=== PATIENT | female | born 1960 | race Caucasian/White ===

== ENCOUNTER 2020-03-29 12:38 | Outpatient (CLI) | payer OTHER, SELFPAY ==
--- NOTE | ~2020-03-29 | XR_ITS ---
EXAMINATION: XR lg joint inject/asp w image DATE: 03/29/2020 13:39 INDICATION: Left hip pain. Left hip flexor tightness. TECHNIQUE: A time-out was performed to verify the patient's name, date of , and procedure to b e performed. The procedure including the risks, benefits, and alternatives was discussed with the pat ient. Risks discussed included bleeding and infection. The patient understood the risks and agreed to proceed. The skin overlying the left hip joint joint was prepped and draped in usual sterile fashio n. Anesthetic was administered with 1% lidocaine subcutaneously. A 22 G needle was advanced under f luoroscopic guidance into the joint. Injection of 1 mL of Omnipaque 240 confirmed intra-articular po sition of the needle. Subsequently, injectate consisting of 1.5 mL 1% lidocaine and 0.5 mL 80 mg/mL Depo-Medrol was instilled. The needle was withdrawn 5 mm to rest in the iliopsoas bursa. Injection of 1 mL of Omnipaque 240 confirmed intra-bursal position of the needle. Injectate consisting of 1.5 mL 1% lidocaine and 0.5 mL 80 mg/mL Depo-Medrol was instilled. The needle was removed and the entry sit e was cleaned and dressed. There were no immediate complications. Fluoroscopy exposure time was 0.1 minutes. The total number of images was 4. FINDINGS: Real-time fluoroscopy demonstrates the needle in the left hip joint. Real-time fluoroscopy demonstrates the needle in the left iliopsoas bursa. Patient's pain prior to procedure:4/10. Patient 's pain following the procedure: 0/10. IMPRESSION: 1. Left hip joint injection of local anesthetic and steroid. 2. Left iliopsoas bursa injection of local anesthetic and steroid. Reviewed, dictated and finalized at location A.
== END 2020-03-29 12:39 | disposition home or self-care (01) ==
LOC: ANHIMG 12:40
PROVIDERS: PCP Family Medicine; Visit Provider Internal Medicine
DX: M24.552 Contracture, left hip (principal); R10.32 Left lower quadrant pain; M25.859 Other specified joint disorders, unspecified hip; S76.012D Strain of muscle, fascia and tendon of left hip, subsequent encounter; X58.XXXD Exposure to other specified factors, subsequent encounter
CPT/HCPCS: 20610; 77002; J1040; Q9966

== ENCOUNTER → 2020-04-27 07:22 | Outpatient (CLI) | payer OTHER, SELFPAY ==
--- NOTE | ~2020-04-27 | MM_ITS ---
EXAMINATION: MM screening jolynn BI w owen HISTORY: Screening mammogram TECHNIQUE: Craniocaudal and mediolateral oblique 3-D tomosynthesis images were obtained and synthetic 2-D images were generated. CAD analysis was submitted and interpreted. COMPARISON: 01/27/2019 bilateral digital screening mammogram / diagnostic left digital mammogram and limited left breast ultrasound 11/11/2017, 09/17/2016 bilateral digital screening mammogram examinations BREAST PARENCHYMAL COMPOSITION: There are scattered areas of fibroglandular density... FINDINGS: There is mild asymmetry in the upper anterior left breast on MLO view. Diagnostic left mamm ogram is recommended, with ultrasound if required.. Otherwise there is no evidence of suspicious mass, calcification, or architectural distortion to sugg est malignancy in either breast. There has been no other suspicious interval change. IMPRESSION: 1. Asymmetry at upper anterior left breast on MLO screening view 2. Diagnostic left mammogram is recommended, with ultrasound if required BI-RADS Category 0: Incomplete: Needs additional imaging evaluation. Reviewed, dictated and finalized at location A.
== END ==
PROVIDERS: Visit Provider Nurse Practitioner Obstetrics & Gynecology
DX: Z12.31 Encounter for screening mammogram for malignant neoplasm of breast (principal); R92.8 Other abnormal and inconclusive findings on diagnostic imaging of breast
CPT/HCPCS: 77063; 77067

== ENCOUNTER → 2020-05-16 08:46 | Outpatient (CLI) | payer OTHER, SELFPAY ==
--- NOTE | ~2020-05-16 | MMUS_ITS ---
EXAMINATION: MM diagnostic mammo unilat LT, US breast LT limited HISTORY: Left breast asymmetries. TECHNIQUE: Additional 3-D tomosynthesis images of the left breast were performed and synthetic 2-D im ages were generated. CAD analysis was submitted and interpreted. High resolution limited left breast ultrasound was performed. COMPARISON: Comparison to multiple prior studies sequentially, with oldest reviewed study dated 02/28. BREAST PARENCHYMAL COMPOSITION: Breast composed of scattered areas of fibroglandular density. FINDINGS: MAMMOGRAPHIC FINDINGS: There are no suspicious masses, calcifications or architectural distortion to suggest malignancy. ULTRASOUND: Limited left breast ultrasound: Normal heterogeneous echotexture without focal solid or cystic mass. IMPRESSION: 1. No evidence for malignancy in the left breast. 2. Routine yearly screening mammogram and regular clinical breast examination are recommended. BI-RADS Category 1: Negative Reviewed, dictated and finalized at location A. IMPRESSION: 1. No evidence for malignancy in the left breast. 2. Routine yearly screening mammogram and regular clinical breast examination a re recommended. BI-RADS Category 1: Negative
== END ==
PROVIDERS: Visit Provider Nurse Practitioner Obstetrics & Gynecology
DX: R92.8 Other abnormal and inconclusive findings on diagnostic imaging of breast (principal)
CPT/HCPCS: 76642; 77065

== ENCOUNTER 2020-11-10 13:36 | Outpatient (CLI) | payer OTHER, SELFPAY ==
--- NOTE | ~2020-11-10 | XR_ITS ---
EXAMINATION: XR lg joint inject/asp w image EXAM DATE: 11/10/2020 14:34 INDICATION: Osteoarthritis of left hip, left hip flexor tightness. TECHNIQUE: A time-out was performed to verify the patient's name, date of , and procedure to b e performed. The procedure including the risks, benefits and alternatives were discussed with the pat ient. Risks discussed included bleeding and infection. The patient understood the risks and agreed to proceed. The skin overlying the left hip joint was prepped and draped in usual sterile fashion. Ane sthetic was administered with 2 milliliters 1% lidocaine subcutaneously. A 22 G needle was advanced under fluoroscopic guidance into the joint. Total of 2 mL of Omnipaque 240 confirmed intra-articula r position of the needle. Subsequently, injectate consisting of 80 mg Depo-Medrol, 3 cc of 2% lidoca ine was instilled. The needle was removed and the entry site was cleaned and dressed. There were n o immediate complications. The DAP for this procedure was 0.175 Gycm2. Pulsed dose reduction fluoro scopy was used with fluoroscopic time of 0.1 minutes. A total of 2 images obtained for the exam. The procedure was performed on 11/10/2020. FINDINGS: Real-time fluoroscopy demonstrates the needle and contrast in the left hip joint. Patient r eported preinjection pain level of 6/10 and post hip injection pain level of 0/10. IMPRESSION: Successful left hip joint injection consisting of steroid and lidocaine. Reviewed, dictated and finalized at location A. IMPRESSION: Successful left hip joint injection consisting of steroid and lidoc darryl.
== END 2020-11-10 13:37 | disposition home or self-care (01) ==
PROVIDERS: PCP Family Medicine; Visit Provider Internal Medicine
DX: M16.12 Unilateral primary osteoarthritis, left hip (principal); M24.552 Contracture, left hip; M70.72 Other bursitis of hip, left hip
CPT/HCPCS: 20610; 77002; J1040; Q9966

== ENCOUNTER 2021-04-30 09:46 | Outpatient (CLI) | payer OTHER, SELFPAY ==
--- NOTE | ~2021-04-30 | XR_ITS ---
EXAMINATION: XR lg joint inject/asp w image DATE: 04/30/2021 10:35 INDICATION: Primary osteoarthritis of left hip. TECHNIQUE: A time-out was performed to verify the patient's name, date of , and procedure to b e performed. The procedure including the risks, benefits, and alternatives was discussed with the pat ient. Risks discussed included bleeding and infection. The patient understood the risks and agreed to proceed. The skin overlying the left hip joint was prepped and draped in usual sterile fashion. An esthetic was administered with 1% lidocaine subcutaneously. A 22 G needle was advanced under fluoros copic guidance into the joint. Injection of 1 mL of Omnipaque 240 confirmed intra-articular position of the needle. Subsequently, injectate consisting of 4 mL 1% lidocaine and 1 mL 80 mg/mL Depo-Medro l was instilled. The needle was removed and the entry site was cleaned and dressed. There were no i mmediate complications. Fluoroscopy exposure time was 0.1 minutes. The total number of images was 3. FINDINGS: Real-time fluoroscopy demonstrates the needle in the left hip joint. Patient's pain prior t o procedure:5/10. Patient's pain following the procedure: 0/10. IMPRESSION: 1. Fluoroscopy guided left hip joint injection of local anesthetic and steroid with decrease in the p atient's presenting pain. Reviewed, dictated and finalized at location A. IMPRESSION: 1. Fluoroscopy guided left hip joint injection of local anesthetic and steroid with decrease in the patient's presenting pain.
== END 2021-04-30 09:47 | disposition home or self-care (01) ==
PROVIDERS: PCP Family Medicine; Visit Provider Physician Assistant
DX: M25.552 Pain in left hip (principal)
CPT/HCPCS: 20610; 77002; J1040; Q9966

== ENCOUNTER → 2021-07-17 15:10 | Outpatient (CLI) | payer OTHER, SELFPAY ==
--- NOTE | ~2021-07-17 | MM_ITS ---
EXAMINATION: MM screening jolynn BI w owen HISTORY: Screening TECHNIQUE: Craniocaudal and mediolateral oblique 3-D tomosynthesis images were obtained and synthetic 2-D images were generated. CAD analysis was submitted and interpreted. COMPARISON: Comparison to multiple prior studies sequentially, with oldest reviewed study dated 02/2017. BREAST PARENCHYMAL COMPOSITION: There are scattered areas of fibroglandular density. FINDINGS: There is no evidence of suspicious mass, calcification, or architectural distortion to sugg est malignancy in either breast. There has been no suspicious interval change. IMPRESSION: 1. No mammographic evidence of malignancy. 2. Recommend routine screening mammography in one year. BI-RADS Category 1: Negative Reviewed, dictated and finalized at location A. NESS PLANNER
== END ==
PROVIDERS: Visit Provider Nurse Practitioner Obstetrics & Gynecology
DX: Z12.31 Encounter for screening mammogram for malignant neoplasm of breast (principal)
CPT/HCPCS: 77063; 77067

== ENCOUNTER → 2021-08-15 01:58 | Outpatient (CLI) | payer OTHER, SELFPAY ==
[2021-08-15 20:49] LABS: SARS-CoV-2 RNA PCR Positive
== END ==
PROVIDERS: PCP Family Medicine; Visit Provider Family Medicine
DX: U07.1 COVID-19 (principal)
CPT/HCPCS: C9803; U0003; U0005

== ENCOUNTER → 2022-09-25 15:40 | Outpatient (CLI) | payer OTHER, SELFPAY ==
--- NOTE | ~2022-09-25 | MM_ITS ---
EXAMINATION: MM screening jolynn BI w owen HISTORY: Screening mammogram TECHNIQUE: Craniocaudal and mediolateral oblique 3-D tomosynthesis images were obtained and synthetic 2-D images were generated. CAD analysis was submitted and interpreted. COMPARISON: No prior mammogram is available for comparison at this institution. BREAST PARENCHYMAL COMPOSITION: There are scattered areas of fibroglandular density. FINDINGS: Left breast: There is an asymmetric approximately 3 mm opacity in the central left breast 5 cm deep to the nipple on craniocaudal view. Diagnostic left mammogram is recommended, with ultrasoun d if required. Right breast: There is no evidence of suspicious mass, calcification, or architectural distortion to suggest malignancy in either breast. IMPRESSION: 1. 3 mm asymmetric opacity in central left breast 5 cm deep to the nipple on CC view 2. Diagnostic left mammogram is recommended, with ultrasound if required BI-RADS Category 0: Incomplete: Needs additional imaging evaluation. Reviewed, dictated and finalized at location A. [employer]ER [employer]
== END ==
PROVIDERS: PCP Nurse Practitioner Obstetrics & Gynecology; Visit Provider Nurse Practitioner Obstetrics & Gynecology
DX: Z12.31 Encounter for screening mammogram for malignant neoplasm of breast (principal); N64.89 Other specified disorders of breast
CPT/HCPCS: 77063; 77067

== ENCOUNTER → 2022-10-18 08:45 | Outpatient (CLI) | payer OTHER, SELFPAY ==
--- NOTE | ~2022-10-18 | MM_ITS ---
EXAMINATION: MM diagnostic jolynn LT w owen HISTORY: Left breast asymmetry on screening mammogram TECHNIQUE: Additional 3-D tomosynthesis images of the left breast were performed and synthetic 2-D im ages were generated. CAD analysis was submitted and interpreted. COMPARISON: 09/23/2022, 07/17/2021, 05/16/2020, 04/27/2020 FINDINGS: There is a return to baseline fibroglandular appearance with spot compression of the left b reast in the area questioned on screening mammogram. IMPRESSION: 1. No mammographic evidence of malignancy. 2. Recommend routine screening mammography in one year. BI-RADS Category 1: Negative Reviewed, dictated and finalized at location A. OR DEVELOPER
== END ==
PROVIDERS: PCP Family Medicine; Visit Provider Nurse Practitioner Obstetrics & Gynecology
DX: R92.8 Other abnormal and inconclusive findings on diagnostic imaging of breast (principal)
CPT/HCPCS: 77061; 77065; G0279

== ENCOUNTER 2022-12-10 00:29 | Day surgery (SDC) | payer OTHER, SELFPAY ==
[2022-11-27 14:18] VITALS: BMI 30.1
[2022-12-10 07:24] VITALS: BP 175/81; PULSE 59; RESP 20; TEMP 36.2; O2SAT 99
[2022-12-10] MEDS: LACTATED RINGERS 1,000 ML 150 ML IV CONT (07:36)
--- NOTE | 2022-12-10 07:47 | P.HP_ITS ---
History of Present Illness History of Present Illness Consent: Risks, benefits, and alternatives have been discussed and questions answered. Patient agrees to proceed with procedure. Chief complaint: neoplasm screening Narrative: Keren Yan is a 62 year old female Presents for screening colonoscopy. Patient's current weight appetite and bowel movements are normal. Patient denies abdominal pain. She has had no bleeding. She denies abdominal pain. Family history noncontributory. Previous colonoscopy 10 years ago was unremarkable. Review of Systems Review of Systems: Review of systems noncontributory. [facility] Family History Family History (Reviewed 07/14/20 @ 15:14 by Matilda Oconnor, [facility]) Mother Hypertension Family history of elevated blood lipids Family history of cardiovascular disease Family history of heart disease in male family member before age 55 Other Family history of malignant neoplasm of breast Malignant neoplasm of prostate Social History Social History (Reviewed 07/14/20 @ 15:14 by Matilda Oconnor, [facility]) Smoking status: Never smoker Alcohol intake: current Drinks per week: 4 Living arrangements: with family Spiritual care concerns: No Meds Home Medications and Allergies Allergies Allergy/AdvReac Type Severity Reaction Status Date / Time codeine Allergy Unknown vomiting Verified 12/10/22 07:23 Vital Signs Vital Signs - 24 hr 12/10/22 07:24 Temperature 97.2 F L Pulse Rate 59 L Respiratory Rate 20 Blood Pressure 175/81 H Pulse Oximetry 99 Oxygen Delivery Room Air Exam Narrative: Physical exam reveals patient to be alert. Vital signs stable. HEENT exam is unremarkable. Patient is anicteric. Lungs are clear to auscultation and percussion. Heart is without murmur or extra sounds. Abdomen bowel sounds are present soft nontender with no organomegaly. Digital external rectal exam is normal. Assessment and Plan Assessment and plan (1) Colon cancer screening: Code(s): Z12.11 - Encounter for screening for malignant neoplasm of colon Status: Acute Assessment and Plan: Patient presents for screening colonoscopy. She appears to be at average risk for colon polyps. Further recommendations may be given after endoscopy.
--- NOTE | 2022-12-10 07:48 | P.PNAN_ITS ---
Anes - Initial Pre Proc Eval Procedure: Operation Date: 12/10/22 08:30 Proposed Procedures p Screening Colonoscopy - Hamilton Blackwell MD Date/Time: 12/10/22 07:48 Surgeon: Hamilton Blackwell MD Pre Op Diagnosis: neoplasm screening Patient Data Age: 62 Gender: F Height: 1.6 m Weight: 76.2 kg Last Vital Signs Temp 97.2 F L 12/10/22 07:24 Pulse 59 L 12/10/22 07:24 Resp 20 12/10/22 07:24 BP 175/81 H 12/10/22 07:24 Pulse Ox 99 12/10/22 07:24 O2 Del Method Room Air 12/10/22 07:24 Allergies Allergy/AdvReac Type Severity Reaction Status Date / Time codeine Allergy Unknown vomiting Verified 12/10/22 07:23 Patient hx anesthesia problems: none Family hx anesthesia problems: none Results Review: All pre-operative results and documents have been reviewed as part of the pre- operative evaluation. PMFSH Family History Family History (Reviewed 07/14/20 @ 15:14 by Matilda Oconnor [facility]) Mother Hypertension Family history of elevated blood lipids Family history of cardiovascular disease Family history of heart disease in male family member before age 55 Other Family history of malignant neoplasm of breast Malignant neoplasm of prostate Social History Social History (Reviewed 07/14/20 @ 15:14 by Matilda Oconnor [facility]) Smoking status: Never smoker Alcohol intake: current Drinks per week: 4 Living arrangements: with family Spiritual care concerns: No Anes - Eval Final PreProcedure Day of Procedure 12/10/22 07:48 Patient weight: overweight Heart: regular rate and rhythm Lungs: clear to auscultation Airway: Mallampati scale class II Neurological: alert and oriented Last oral intake: >/= 8 hours ASA classification: II Emergent: no Anesthetic plan: proceed Anesthesia type and monitoring: general GIVS and standard monitoring Results Review: All pre-operative results and documents have been reviewed as part of the pre- operative evaluation. Informed Consent: The patient's anesthetic plan and its attendant risks and benefits were discussed with the patient/family/POA. Questions were solicited and answers provided to the satisfaction of the patient/family/POA.
[2022-12-10 08:40] VITALS: BP 117/67; PULSE 71; RESP 24; O2SAT 99
[2022-12-10 08:50] VITALS: BP 136/100; PULSE 76; RESP 24; O2SAT 99
[2022-12-10 09:00] VITALS: BP 141/84; PULSE 68; RESP 18; O2SAT 99
== END 2022-12-10 09:14 | disposition home or self-care (01) ==
PROVIDERS: PCP Family Medicine; Visit Provider Internal Medicine Gastroenterology
PROC: 0DJD8ZZ Inspection of Lower Intestinal Tract, Via Natural or Artificial Opening Endoscopic (ICD-10-PCS; CPT 45378; principal; 2022-12-10 08:30)
DX: Z12.11 Encounter for screening for malignant neoplasm of colon (principal); D12.0 Benign neoplasm of cecum; D12.4 Benign neoplasm of descending colon; D12.5 Benign neoplasm of sigmoid colon; K64.8 Other hemorrhoids
CPT/HCPCS: 45385; 88305; J2704; J7120

== ENCOUNTER → 2023-06-26 16:14 | Outpatient (CLI) | payer OTHER, SELFPAY ==
--- NOTE | ~2023-06-26 | XR_ITS ---
EXAMINATION: XR hand BI arthritis min 3V DATE: 06/26/2023 16:23 INDICATION: Arthritis. Hand pain. TECHNIQUE: 4 views of right hand and 4 views of left hand on a total of 7 radiographs were obtained. COMPARISON: Left hand radiographs 11/09/2015 FINDINGS: RIGHT HAND: Bone alignment is normal. No fracture. There is mild osteoarthritis of second metacarpoph alangeal joint and second, third, and fifth distal interphalangeal joints. LEFT HAND: Bone alignment is normal. No acute fracture. There is plate and screw fixation of distal r adius. There is mild osteoarthritis of first metacarpophalangeal joint and second distal interphalang eal joint. IMPRESSION: 1. Mild polyarticular osteoarthritis. Reviewed, dictated and finalized at location A. ANALYST
== END ==
PROVIDERS: PCP Family Medicine; Visit Provider Family Medicine
DX: M19.042 Primary osteoarthritis, left hand (principal); M19.041 Primary osteoarthritis, right hand; M25.542 Pain in joints of left hand; M25.541 Pain in joints of right hand
CPT/HCPCS: 73130

== ENCOUNTER 2023-06-27 08:24 | Outpatient (CLI) | payer OTHER, SELFPAY ==
[2023-06-27 18:40] LABS: Basophils Absolute Auto 0.1 K/mm3 (0.0-0.1); Basophils Percent Auto 1.4 % (0.2-1.2); Eosinophils Absolute Auto 0.1 K/mm3 (0-0.3); Eosinophils Percent Auto 1.9 % (0-4.4); Hemoglobin 13.5 g/dL (12.0-15.0); Immature Granulocyte Absolute 0.01 K/mm3 (0.00-0.031); Immature Granulocyte Percent A 0.2 % (0-0.5); Lymphocytes Absolute Auto 1.78 K/mm3 (0.9-3.2); Lymphocytes Percent Auto 41.5 % (18.3-44.2); Mean Corpuscular HGB Conc 32.9 g/dl (32-36); Mean Corpuscular Hemoglobin 31.4 pg (26-34); Mean Corpuscular Volume 95.3 fl (80-100); Mean Platelet Volume 12.7 fl (7.4-10.4); Monocytes Absolute Auto 0.4 K/mm3 (0.1-0.6); Monocytes Percent Auto 9.3 % (2.6-8.5); Neutrophils Percent Auto 45.7 % (45.5-73.1); Platelet Count Result 182 k/mm3 (150-375); Red Cell Distribution Width 12.6 % (11.5-14.5); White Blood Count 4.3 K/mm3 (4.5-10.0)
[2023-06-27 18:52] LABS: Alanine Aminotransferase 26 U/L (6-35); Albumin Level 4.4 g/dL (3.5-5.1); Alkaline Phosphatase 66 U/L (38-126); Anion Gap 7 mmol/L (8-16); Aspartate Amino Transferase 39 U/L (14-36); Bilirubin,Total 0.6 mg/dL (0.2-1.3); Blood Urea Nitrogen 14 mg/dL (7-17); Calcium 9.5 mg/dL (8.4-10.2); Carbon Dioxide 31 mmol/L (22-30); Chloride 101 mmol/L (98-107); Cholesterol 234 mg/dL (0-200); Estimated Glomerular Filt Rate > 60; Glucose 87 mg/dL (65-110); HDL Direct 70 mg/dL; Potassium 3.9 mmol/L (3.4-5.0); Sodium 139 mmol/L (137-145); Triglycerides 104 mg/dL (<150); Uric Acid 3.9 mg/dL (2.5-7.5)
[2023-06-27 19:03] LABS: LDL Cholesterol Direct 112 mg/dL
[2023-06-27 19:07] LABS: Rheumatoid Factor < 12.0 IU/ML (<12)
[2023-06-27 19:20] LABS: Erythrocyte Sedimentation Rate 15 mm/hr (0-20)
[2023-06-27 19:29] LABS: Hemoglobin A1C 5.5 % (<5.7)
== END 2023-06-27 08:25 | disposition home or self-care (01) ==
PROVIDERS: PCP Family Medicine; Visit Provider Family Medicine
DX: M12.9 Arthropathy, unspecified (principal); E03.8 Other specified hypothyroidism; R73.03 Prediabetes; E78.5 Hyperlipidemia, unspecified; Z83.49 Family history of other endocrine, nutritional and metabolic diseases
CPT/HCPCS: 36415; 80053; 80061; 81256; 82728; 83036; 84443; 84550; 85025; 85652; 86038; 86430

== ENCOUNTER 2023-12-12 13:45 | Outpatient (CLI) | payer OTHER, SELFPAY ==
--- NOTE | ~2023-12-12 | MM_ITS ---
EXAMINATION: MM screening jolynn BI w owen HISTORY: Screening mammogram TECHNIQUE: Craniocaudal and mediolateral oblique 3-D tomosynthesis images were obtained and synthetic 2-D images were generated. CAD analysis was submitted and interpreted. COMPARISON: 3 size and size 2022 diagnostic left mammogram 09/25/2022, 07/17/2021 bilateral screening mammogram examinations BREAST PARENCHYMAL COMPOSITION: There are scattered areas of fibroglandular density. FINDINGS: There is no evidence of suspicious mass, calcification, or architectural distortion to sugg est malignancy in either breast. There has been no suspicious interval change. IMPRESSION: 1. No mammographic evidence of malignancy. 2. Recommend routine screening mammography in one year. BI-RADS Category 1: Negative Reviewed, dictated and finalized at location A.
== END 2023-12-12 13:46 ==
LOC: MICIMG 13:46
PROVIDERS: PCP Nurse Practitioner Obstetrics & Gynecology; Visit Provider Nurse Practitioner Obstetrics & Gynecology
DX: Z12.31 Encounter for screening mammogram for malignant neoplasm of breast (principal)
CPT/HCPCS: 77063; 77067

== ENCOUNTER 2024-12-13 13:29 | Outpatient (CLI) | payer OTHER, SELFPAY ==
--- NOTE | ~2024-12-13 | MM_ITS ---
EXAMINATION: MM screening jolynn BI w owen HISTORY: Screening TECHNIQUE: Craniocaudal and mediolateral oblique 3-D tomosynthesis images were obtained and synthetic 2-D images were generated. CAD analysis was submitted and interpreted. COMPARISON: Comparison to multiple prior studies sequentially, with oldest reviewed study dated 04/27. BREAST PARENCHYMAL COMPOSITION: Not dense: There are scattered areas of fibroglandular density. FINDINGS: There is no evidence of suspicious mass, calcification, or architectural distortion to sugg est malignancy in either breast. There has been no suspicious interval change. IMPRESSION: 1. No mammographic evidence of malignancy. 2. Recommend routine screening mammography in one year. BI-RADS Category 1: Negative Reviewed, dictated and finalized at location A.
== END 2024-12-13 13:30 | disposition home or self-care (01) ==
LOC: MICIMG 13:29
PROVIDERS: PCP Family Medicine; Visit Provider Family Medicine
DX: Z12.31 Encounter for screening mammogram for malignant neoplasm of breast (principal)
CPT/HCPCS: 77063; 77067

== ENCOUNTER 2025-01-07 07:57 | Outpatient (CLI) | payer OTHER, SELFPAY ==
--- OUTSIDE RECORDS SUMMARY | 2025-01-07 08:01 | XMS_ITS | Clinical Summary ---
Author Organization [facility] Address [address] [place] [address] Care Team Providers Care Faro Dealer Name Role Phone Sandy Iglesias MD Primary Care Provider + Allergies Active Allergy Reactions Criticality Noted Date Comments Codeine Vomiting Low 10/09/2018 Medications ibuprofen (ADVIL,MOTRIN) 200 mg tab/capIndicati ons:Pain Take 2 tablet/capsule (400 mg total) by mouth every 6 (six) hours as needed for pain Active omega 4-eoa-jut-fish oil 300-1,000 mg capsule Fish Oil 300 mg-1,000 mg capsule Active multivit with minerals/lutein (MULTIVITAMIN 50 PLUS ORAL) multivitamin Act tyrone losartan (COZAAR) 50 mg tablet Take 1 tablet (50 mg total) by mouth daily Active predniSONE (DELTASONE) 10 mg tabletIndicatio ns:Myalgia,Poly arthralgia 6 tabs on days 1-2, 5 tabs days 3-4, 4 tabs days 5-6, 3 tabs days 7-8, 2 tabs days 9-10, 1 tab days 11-12 42 tablet 4 Active celecoxib (CeleBREX) 200 mg capsuleIndicati ons:Strain of right hip adductor muscle, initial encounter TAKE 1 CAPSULE (200 MG TOTAL) BY MOUTH DAILY FOR 21 DAYS 21 capsule 5 Active Active Problems Problem Noted Date Diagnosed Date Impingement syndrome of left shoulder 12/30/2024 Nontraumatic complete tear of rotator cuff, left 12/30/2024 Superior glenoid labrum lesion of left shoulder 10/22/2024 Rotator cuff impingement syndrome, left 10/23/19 Arthritis of left acromioclavicular joint 2024 Nontraumatic incomplete tear of left rotator cuf f 10/22/2024 Abdominal pain, chronic, left lower quadrant Overview (11/25/2018): Added automatically from request for surgery [id number] Abnormal CT of the abdomen 11/26/2017 Abnormal clinical finding 06/17/2017 Pelvic and perineal pain 05/20/2017 Cervical high risk HPV (human papillomavirus) te st positive 05/06/2017 Urinary tract infectious disease 10/03/2016 Well adult health check 01/13/2015 Encounter for specialized medical examination Proteinuria 10/25/2013 Menopausal symptom 12/20/2011 Screening for malignant neoplasm of cervix 09/27 Encounters Date Type Department Care Team Description 12/30/[address] [facility] Orthopedics and Sports Medicine [address] [place] [phone] Dilshad Flores MD Superior glenoid labrum lesion of left shoulder, initial encounter (Primary Dx); Rotator cuff impingement syndrome, left; Arthritis of left acromioclavicular joint; Nontraumatic incomplete tear of left rotator cuff 10/22/2024 10:15 AM CDT Office Visit [facility] Orthopedic and Sports Medicine [address] [place] [phone] Dilshad Flores MD Superior glenoid labrum lesion of left shoulder, initial encounter (Primary Dx); Rotator cuff impingement syndrome, left; Arthritis of left acromioclavicular joint; Nontraumatic incomplete tear of left rotator cuff 10/22/2024 Orders Only [facility] Orthopedic and Sports Medicine [address] [place] [phone] Dilshad Flores MD S/P arthroscopy of left shoulder (Primary Dx) 10/22/2024 Telephone [facility] Orthopedic and Sports Medicine [address] [place] [phone] Dilshad Flores MD Surgical Clearance from Last 3 Months Surgical History Surgery Date Site/Laterality Comments EMBOLIZATION 06/11/2017 - 07/10/2017 Left Ovarian Venography/Embolization FRACTURE SURGERY 11/09/2013 - 12/08/2013 Left Left radius fx - w/ plate WISDOM TOOTH EXTRACTION VAGINAL DELIVERY x 2 FL FLUORO GUIDED INJECTION HIP LEFT 06/11/2022 Left FL FLUORO GUIDED INJECTION HIP LEFT 05/12/2023 Left FL FLUORO GUIDED INJECTION HIP LEFT 06/04/2024 Left Medical History Medical History Date Comments Abdominal pain LLQ PONV (postoperative nausea and vomiting) Motion sickness Migraines Family History Medical History Relation Name Comments Heart attack Mother Hypertension Mother PONV Mother Cancer Other Heart disease Other Hypertension Other Mental illness Other Relation Name Status Comments Mother (Age 77 ) [place] late 5 0's s/p CABG Other Social History Tobacco Use Types Packs/Day Years Used Date Smoking Tobacco: Never Smokeless Tobacco: Never Tobacco Cessation:Counseling Given: Not Answered Alcohol Use Standard Drinks/Week Comments Yes 7 (1 standard drink = 0.6 oz pur e alcohol) 1 glass of wine w/ dinner AUDIT-C Answer Date Recorded Q1: How often do you have a drink containing alc ohol? Monthly or less 07/15/2024 Q2: How many drinks containi ng alcohol do you have on a typical day when you are drinking? 1 or 2 07/15/2024 Q3: How often do you have si x or more drinks on one occasion? 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 Gender Identity Female 04/17/2021 10:51 AM CDT Sexual Orientation Straight 04/17/2021 10 :51 AM CDT Obstetrics History Last Filed Vital Signs Vital Sign Reading Time Taken Comments Blood Pressure 162/82 10/22/2024 11:06 AM CDT Pulse 84 10/22/2024 11:06 AM CDT Temperature 36.3 C (97.3 F) 11/06/2020 7:10 AM CDT Respiratory Rate 18 07/06/2024 2:16 PM WORKING FOREMAN Oxygen Saturation 97% 04/04/2020 10: 35 AM CDT Inhaled Oxygen Concentration - - Weight 79.8 kg (175 lb 14.8 oz) 025 12:25 PM CDT Height 157.5 cm (5' 2.01) 10/22/2024 1 2:25 PM CDT Body Mass Index 32.17 10/22/2024 12:25 PM CDT Plan of Treatment Upcoming Encounters Date Type Department Care Team (Latest Contact Info) Description 01/18/2025 11:05 AM CDT Hospital Encounter [facility] Operating Room [address] [place] [address] Dilshad Flores MD [address] [facility] [address] JAQUI Denton [facility] [address] [place] [address] 01/18/2025 11:05 AM CDT - 01/18/2025 1:15 PM CDT Surgery [facility] Operating Room [address] [place] [address] Dilshad Flores MD [address] [facility] [address] JAQUI Denton [facility] [address] [place] [address] Left shoulder arthroscopy, distal claviculectomy including distal articular surface, decompression of subacromial space with partial acromioplasty with coracoacromial release, rotator cuff repair and biceps tenodesis--arthroscopy equipment, beach chair, Arthrex ApolloRf vapor, biceps tenodesis set Arthrex, Breg Sling shot 2 sling with abduction pillow, NMES, Spider, Arthrex anchors, polar care and Arthroflex graft on hold Scheduled Procedures Name Priority Associated Diagnoses Date/Ti me ARTHROSCOPY SHOULDER Superior glenoid labrum lesion of left shoulder, initial encounter Impingement syndrome of left shoulder Arthritis of left acromioclavicular joint Nontraumatic complete tear of rotator cuff, left 01/18/2025 11:05 AM CDT Health Maintenance Due Date Last Done Comments Cervical Cancer Screening 1960 Colon Cancer Screening-Colonoscopy 1960 Depression Screening 1960 Hepatitis C Screening 1960 Hepatitis B Screening 1980 Regular Well Visit/Exam 18-64 1980 Zoster Vaccine (1 of 2) 2012 Breast Cancer Screening-Mammogram 12/11/2024 12/12/2023, 09/25/2022, 07/18/2021, Additional history exists Influenza Vaccine (Season Ended) 2025 07/16/2023, 06/25/2022, 06/26/2021, Additional history exists DTaP/Tdap/Td Vaccine (3 - Td or Tdap) 07/16/2029 07/16/2019, 06/14/2012 Pneumococcal vaccine <65 Aged Out No longer eligible based on patient's age to complete this topic Insurance [facility] Care Teams Faro Dealer Relationship Specialty Start Date End Date Sandy Iglesias MD PCP - General 06/30/17
--- OUTSIDE RECORDS SUMMARY | 2025-01-07 08:01 | XMS_ITS | Referral Summary ---
Author Organization [facility] Address [address] [place] [phone] Care Team Providers Care Retirement Plan Specialist Name Role Phone Sandy Iglesias MD Primary Care Provider + Encounters Date Type Department Care Team Description 12/30/2024 Orders Only [facility] Medical [facility] Orthopedics and Sports Medicine [address] [place] [address] [place] [phone] Dilshad Flores MD Superior glenoid labrum lesion of left shoulder, initial encounter (Primary Dx); Rotator cuff impingement syndrome, left; Arthritis of left acromioclavicular joint; Nontraumatic incomplete tear of left rotator cuff 10/22/2024 Orders Only [facility] Orthopedic and Sports Medicine [address] [place] [phone] Dilshad Flores MD S/P arthroscopy of left shoulder (Primary Dx) 10/22/2024 Telephone [facility] Orthopedic and Sports Medicine [address] [place] [phone] Dilshad Flores MD Surgical Clearance 10/22/2024 10:15 AM CDT Office Visit [facility] Orthopedic and Sports Medicine [address] [place] [phone] Dilshad Flores MD Superior glenoid labrum lesion of left shoulder, initial encounter (Primary Dx); Rotator cuff impingement syndrome, left; Arthritis of left acromioclavicular joint; Nontraumatic incomplete tear of left rotator cuff from Last 3 Months Allergies Active Allergy Reactions Criticality Noted Date Comments Codeine Vomiting Low 10/09/2018 Medications ibuprofen (ADVIL,MOTRIN) 200 mg tab/capIndicati ons:Pain Take 2 tablet/capsule (400 mg total) by mouth every 6 (six) hours as needed for pain Active omega 0-kri-ctr-fish oil 300-1,000 mg capsule Fish Oil 300 [...] 10/22/2024 Rotator cuff impingement syndrome, left 10/23/19 25 Arthritis of left acromioclavicular joint 2024 Nontraumatic incomplete tear of left rotator cuf f 10/22/2024 Abdominal pain, chronic, left lower quadrant Overview (11/25/2018): Added automatically from request for surgery [id number] Abnormal CT of the abdomen 11/26/2017 Abnormal clinical finding 06/17/2017 Pelvic and perineal pain 05/20/2017 Cervical high risk HPV (human papillomavirus) te st positive 05/06/2017 Urinary tract infectious disease 10/03/2016 Well adult health check 01/13/2015 Encounter for specialized medical examination Proteinuria 10/25/2013 Menopausal symptom 12/20/2011 Screening for malignant neoplasm of cervix 09/27 Social History Tobacco Use Types Packs/Day Years [...] on file Legal Sex Female 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 MEDICAL REGISTRAR Gender Identity Female 04/17/2021 10:51 AM CDT Sexual Orientation Straight 04/17/2021 10 :51 AM CDT Last Filed Vital Signs Vital Sign Reading Time Taken Comments Blood Pressure 162/82 10/22/2024 11:06 AM CDT Pulse 84 10/22/2024 11:06 AM CDT Temperature 36.3 C (97.3 F) 11/06/2020 7:10 AM CDT Respiratory Rate 18 07/06/2024 2:16 PM MEDICAL REGISTRAR Oxygen Saturation 97% 04/04/2020 10: 35 AM CDT Inhaled Oxygen Concentration - - Weight 79.8 kg (175 lb 14.8 oz) 025 12:25 PM CDT Height 157.5 cm (5' 2.01) 10/22/2024 1 2:25 PM CDT Body Mass Index 32.17 10/22/2024 12:25 PM CDT Plan of Treatment Upcoming Encounters Date Type Department Care Team (Latest Contact Info) Description 01/18/2025 11:05 AM CDT Hospital Encounter [facility] Operating Room [address] [place] [address] Dilshad Flores MD [address] [place] [address] DR NAILS B [facility] [address] [place] [address] 01/18/2025 11:05 AM CDT - 01/18/2025 1:15 PM CDT Surgery [facility] Operating Room [address] [place] [address] Dilshad Flores MD [address] [facility] [address] NAILS B DESI [address] [place] [address] Left shoulder arthroscopy, distal claviculectomy including distal [...] rotator cuff, left 01/18/2025 11:05 AM CDT Insurance [facility] Address: [address] [address] [facility] Address: [address] [address] [place] [address] [facility] Address: [address] [address] [place] [address] Care Teams Retirement Plan Specialist Relationship Specialty Start Date End Date Sandy Iglesias MD PCP - General 06/30/17
[2025-01-07 14:44] LABS: Kit Draw Collected
== END 2025-01-07 07:58 | disposition home or self-care (01) ==
PROVIDERS: PCP Family Medicine; Visit Provider Family Medicine
DX: E78.2 Mixed hyperlipidemia (principal); E03.8 Other specified hypothyroidism; I10 Essential (primary) hypertension; M12.9 Arthropathy, unspecified; Z11.59 Encounter for screening for other viral diseases
CPT/HCPCS: 36415

== ENCOUNTER 2025-01-11 08:40 | Outpatient (CLI) | payer OTHER, SELFPAY ==
--- NOTE | 2025-01-11 08:48 | EST_ITS ---
Patient Info Name: Keren Yan Age: 64 years : 1960 Gender: Female Ht: 63 in Wt: 175 lbs BSA: 1.91 m2 HR: 60 bpm BP: 146 / 71 mmHg Exam Date: 01/11/2025 8:48 AM Patient Status: O Admit Date: 01/11/2025 Exam Type: CA stress test treadmill A treadmill exercise stress test was performed. Staff Attending Provider: Sandy Iglesias MD Exercise Technologist: Riddhi Cespedes Exercise Physician: Paul Packer DO Summary 1. 1. Negative Aroldo exercise stress test for ischemic ST changes by ECG criteria. 2. 2. Good functional capacity, achieving 8.9 METs of workload. 3. 3. Baseline hypertension. 4. 4. Appropriate HR response to exercise. 5. 4. Appropriate HR recovery at 1 minute post exercise. 6. 5. No imaging with stress testing. 7. 6. Patient informed of the above results. Protocol: Aroldo Stress ECG Details Stage: REST Duration (min): 0 min : 38 sec Speed (mph): 0.0 Grade (%): 0 HR (bpm): 60 SBP (mmHg): 146 DBP (mmHg): 71 METS: --- Stage: REST Duration (min): 6 min : 45 sec Speed (mph): 0.0 Grade (%): 0 HR (bpm): 73 SBP (mmHg): 146 DBP (mmHg): 71 METS: --- Stage: STAGE 1 Duration (min): 1 min : 0 sec Speed (mph): 1.7 Grade (%): 10 HR (bpm): 93 SBP (mmHg): 146 DBP (mmHg): 71 METS: --- Stage: STAGE 1 Duration (min): 2 min : 0 sec Speed (mph): 1.7 Grade (%): 10 HR (bpm): 103 SBP (mmHg): 146 DBP (mmHg): 71 METS: --- Stage: STAGE 1 Duration (min): 3 min : 0 sec Speed (mph): 1.7 Grade (%): 10 HR (bpm): 109 SBP (mmHg): 186 DBP (mmHg): 61 METS: --- Stage: STAGE 2 Duration (min): 1 min : 0 sec Speed (mph): 2.5 Grade (%): 12 HR (bpm): 121 SBP (mmHg): 186 DBP (mmHg): 61 METS: --- Stage: STAGE 2 Duration (min): 2 min : 0 sec Speed (mph): 2.5 Grade (%): 12 HR (bpm): 132 SBP (mmHg): 198 DBP (mmHg): 64 METS: --- Stage: STAGE 2 Duration (min): 3 min : 0 sec Speed (mph): 2.5 Grade (%): 12 HR (bpm): 134 SBP (mmHg): 198 DBP (mmHg): 64 METS: --- Stage: STAGE 3 Duration (min): 1 min : 0 sec Speed (mph): 3.4 Grade (%): 14 HR (bpm): 141 SBP (mmHg): 198 DBP (mmHg): 64 METS: --- Stage: STAGE 3 Duration (min): 1 min : 0 sec Speed (mph): 3.4 Grade (%): 14 HR (bpm): 141 SBP (mmHg): 198 DBP (mmHg): 64 METS: --- Stage: RECOVERY Duration (min): 0 min : 59 sec Speed (mph): 0.0 Grade (%): 0 HR (bpm): 108 SBP (mmHg): 198 DBP (mmHg): 64 METS: --- Stage: RECOVERY Duration (min): 1 min : 59 sec Speed (mph): 0.0 Grade (%): 0 HR (bpm): 88 SBP (mmHg): 198 DBP (mmHg): 64 METS: --- Stage: RECOVERY Duration (min): 2 min : 59 sec Speed (mph): 0.0 Grade (%): 0 HR (bpm): 79 SBP (mmHg): 173 DBP (mmHg): 74 METS: --- Stage: RECOVERY Duration (min): 3 min : 35 sec Speed (mph): 0.0 Grade (%): 0 HR (bpm): 80 SBP (mmHg): 173 DBP (mmHg): 74 METS: --- Rest HR: 73 bpm Peak HR: 141 bpm Rest Sys BP: 146 mmHg Peak Sys BP: 198 mmHg Max Pred HR: 158 bpm % Max Pred HR: 89 % Target HR: 134 bpm Max RPP: 27,918 bpm*mmHg Keller Score: -2 Termination Reason: Reached target heart rate or workload Cardiac Symptoms: Shortness of breath Max ST Seg Deviation: -1.80 mm Total Time: 7 min : 0 sec Rest Carroll BP: 71 mmHg Peak Carroll BP: 64 mmHg Angina Score: None Total METS: 8.9 Resting ECG Sinus rhythm. Stress ECG Upsloping [address] depression in diffuse leads. Arrhythmias None. Report Signatures
--- OUTSIDE RECORDS SUMMARY | 2025-01-11 08:49 | XMS_ITS | Clinical Summary ---
Author Organization [facility] Address [address] [place] [address] Care Team Providers Care Major Appliance Assembly Supervisor Name Role Phone Sandy Iglesias MD Primary Care Provider + Allergies Active Allergy Reactions Criticality Noted Date Comments Codeine Vomiting Low 10/09/2018 Medications ibuprofen (ADVIL,MOTRIN) 200 mg tab/capIndicati ons:Pain Take 2 tablet/capsule (400 mg total) by mouth every 6 (six) hours as needed for pain Active omega 5-lwb-tkd-fish oil 300-1,000 mg capsule Fish Oil 300 [...] (11/25/2018): Added automatically from request for surgery [id number] Abnormal CT of the abdomen 11/26/2017 Abnormal clinical finding 06/17/2017 Pelvic and perineal pain 05/20/2017 Cervical high risk HPV (human papillomavirus) te st positive 05/06/2017 Urinary tract infectious disease 10/03/2016 Well adult health check 01/13/2015 Encounter for specialized medical examination Proteinuria 10/25/2013 Menopausal symptom 12/20/2011 Screening for malignant neoplasm of cervix 09/27 Encounters Date Type Department Care Team Description 12/30/2024 Orders Only [facility] Medical [facility] Orthopedics and Sports Medicine [address] [place] [phone] Dilshad Flores MD Superior glenoid labrum lesion of left shoulder, initial encounter (Primary Dx); Rotator cuff impingement syndrome, left; Arthritis of left acromioclavicular joint; Nontraumatic incomplete tear of left rotator cuff 10/22/2024 10:15 AM CDT Office Visit [facility] Orthopedic and Sports Medicine [address] [place] [phone] Dilshad Flores MD Superior glenoid labrum lesion of left shoulder, initial encounter (Primary Dx); Rotator cuff impingement syndrome, left; Arthritis of left acromioclavicular joint; Nontraumatic incomplete tear of left rotator cuff 10/22/2024 Orders Only [facility] Orthopedic and Sports Medicine [address] [place] [phone] Dilshad Flores MD S/P arthroscopy of left shoulder (Primary Dx) 10/22/2024 Telephone [facility] Orthopedic and Sports Medicine [address] [place] [phone] Dilshad Flores MD Surgical Clearance from [...] Name Status Comments Mother (Age 77 ) [place] late 5 0's s/p CABG Other Social [...] on file Legal Sex Female 4:04 AM TOW FEEDER Gender Identity Female 04/17/2021 10:51 AM CDT Sexual Orientation Straight 04/17/2021 10 :51 AM CDT Obstetrics History Last Filed Vital Signs Vital Sign Reading Time Taken Comments Blood Pressure 162/82 10/22/2024 11:06 AM CDT Pulse 84 10/22/2024 11:06 AM CDT Temperature 36.3 C (97.3 F) 11/06/2020 7:10 AM CDT Respiratory Rate 18 07/06/2024 2:16 PM TOW FEEDER Oxygen Saturation 97% 04/04/2020 10: 35 AM CDT Inhaled Oxygen Concentration - - Weight 79.8 kg (175 lb 14.8 oz) 025 12:25 PM CDT Height 157.5 cm (5' 2.01) 10/22/2024 1 2:25 PM CDT Body Mass Index 32.17 10/22/2024 12:25 PM CDT Plan of Treatment Upcoming Encounters Date Type Department Care Team (Latest Contact Info) Description 01/18/2025 11:30 AM CDT Hospital Encounter [facility] Operating Room [address] [place] [address] Dilshad Flores MD [address] [facility] [address] JAQUI Denton [facility] [address] [place] [address] 01/18/2025 11:30 AM CDT - 01/18/2025 1:40 PM CDT Surgery [facility] Operating Room [address] [place] [address] Dilshad Flores MD [address] [facility] [address] JAQUI Denton [facility] [address] [place] [address] Left shoulder arthroscopy, distal claviculectomy including distal [...] complete tear of rotator cuff, left 01/18/2025 11:30 AM CDT Health Maintenance Due Date Last [...] patient's age to complete this topic Insurance [facility] Care Teams Major Appliance Assembly Supervisor Relationship Specialty Start Date End Date Sandy Iglesias MD PCP - General 06/30/17
--- OUTSIDE RECORDS SUMMARY | 2025-01-11 08:49 | XMS_ITS | Referral Summary ---
Author Organization [facility] Address [address] [place] [phone] Care Team Providers Care Network Strategist Name Role Phone Sandy Iglesias MD Primary Care Provider + Encounters Date Type Department Care Team Description 12/30/2024 Orders Only [facility] Medical [facility] Orthopedics and Sports Medicine [address] [place] [address] [place] [phone] Dilshad Flores MD Superior glenoid labrum lesion of left shoulder, initial encounter (Primary Dx); Rotator cuff impingement syndrome, left; Arthritis of left acromioclavicular joint; Nontraumatic incomplete tear of left rotator cuff 10/22/2024 Orders Only [facility] Orthopedic and Sports Medicine [address] [place] [phone] Dilshad Flores MD S/P arthroscopy of left shoulder (Primary Dx) 10/22/2024 Telephone [facility] Orthopedic and Sports Medicine [address] [place] [phone] Dilshad Flores MD Surgical Clearance 10/22/2024 10:15 AM CDT Office Visit [facility] Orthopedic and Sports Medicine [address] [place] [phone] Dilshad Flores MD Superior glenoid labrum [...] hours as needed for pain Active omega 8-egu-wjc-fish oil 300-1,000 mg capsule Fish Oil 300 [...] (11/25/2018): Added automatically from request for surgery [id number] Abnormal CT of the abdomen 11/26/2017 Abnormal [...] on file 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 Gender Identity Female 04/17/2021 10:51 AM CDT Sexual Orientation Straight 04/17/2021 10 :51 AM CDT Last Filed Vital Signs Vital Sign Reading Time Taken Comments Blood Pressure 162/82 10/22/2024 11:06 AM CDT Pulse 84 10/22/2024 11:06 AM CDT Temperature 36.3 C (97.3 F) 11/06/2020 7:10 AM CDT Respiratory Rate 18 07/06/2024 2:16 PM RETAIL ANALYST Oxygen Saturation 97% 04/04/2020 10: 35 AM CDT Inhaled Oxygen Concentration - - Weight 79.8 kg (175 lb 14.8 oz) 025 12:25 PM CDT Height 157.5 cm (5' 2.01) 10/22/2024 1 2:25 PM CDT Body Mass Index 32.17 10/22/2024 12:25 PM CDT Plan of Treatment Upcoming Encounters Date Type Department Care Team (Latest Contact Info) Description 01/18/2025 11:30 AM CDT Hospital Encounter [facility] Operating Room [address] [place] [address] Dilshad Flores MD [address] [place] [address] DR NAILS B [facility] [address] [place] [address] 01/18/2025 11:30 AM CDT - 01/18/2025 1:40 PM CDT Surgery [facility] Operating Room [address] [place] [address] Dilshad Flores MD [address] [facility] [address] NAILS B DESI [address] [place] [address] Left shoulder arthroscopy, distal claviculectomy including distal [...] rotator cuff, left 01/18/2025 11:30 AM CDT Insurance [facility] Care Teams Network Strategist Relationship Specialty Start Date End Date Sandy Iglesias MD PCP - General 06/30/17
--- OUTSIDE RECORDS SUMMARY | 2025-01-11 08:49 | XMS_ITS | Encounter Summary ---
Author Organization [facility] Address [address] [place] [address] Care Team Providers Care Warehouse Team Member Name Role Phone Sandy Iglesias MD Primary Care Provider + Reason for Visit * Reason Onset Date Comments Surgical Clearance 10/22/2024 Encounter Details Date Type Department Care Team (Late st Contact Info) Description 10/22/2024 Telephone [facility] Orthopedic and Sports Medicine [address] [place] [id number] Dilshad Flores MD [address] [place] [address] [address] NAILS [address] [address] Surgical Clearance Social History Tobacco Use Types Packs/Day Years Used Date Smoking Tobacco: Never Smokeless Tobacco: Never Alcohol Use Standard Drinks/Week Comments Yes 7 [...] on file Legal Sex Female 4:04 AM [employer] Gender Identity Female 04/17/2021 10:51 AM CDT Sexual Orientation Straight 04/17/2021 10 :51 AM CDT documented as of this encounter Miscellaneous Notes * Telephone Encounter - Connie Lloyd MA - 01/10/2025 4:29 PM CDT Correct PCP has ordered it. Awaiting when it will be scheduled. * Telephone Encounter - Gage Herring PA - 01/10/2025 4:25 PM CDT So we will wait for the stress test to have official clearance? * Telephone Encounter - Connie Lloyd MA - 01/10/2025 9:37 AM CDT Surgery Clearance form received from PCP. They have ordered a stress test. * Telephone Encounter - Connie Lloyd MA - 10/22/2024 3:33 PM CDT Noted and updated. * Telephone Encounter - Dana White MA - 10/22/2024 3:05 PM CDT Procedure: Left shoulder arthroscopy- Rotator cuff repair-[facility] DOS: 01/18/25 Surgery Clearance Checklist: [x] PCP: Sandy Iglesias [] Cardiology: [] Endocrinology: [] Pulmonology: [] Neurology: [] Other: Blood Thinner: [] Yes Name of medication: [x] No Is patient a Diabetic: [] Yes [x] No Preferred Outpatient Physical Therapy location: [facility] Reviewed with patient surgery clearance requirements that forms must be returned to our office no later than 72 hours prior to surgery. Later than 72 hours may cause patients surgery to be cancelled and/or rescheduled. Reviewed with patient that appointments with the above provider should be scheduled in a timely manner, and recommend appointments be made no later than 3 weeks prior to surgery. For Total Arthoplasty Surgery: Reviewed with patient labs to be completed prior to surgery, advisedthese must be completed no more than 30 days prior to surgery. Patient was advised to completely these early on in the 30 day window to allow time to address abnormal results if they arise. Labs are to be completed at: n/a Medications to be discontinued prior to surgery were reviewed with patient, and hand out provided listing when to stop prior to surgery. Patient instructed to contact PCP and/or prescribing provider with questions about when to discontinue prior to surgery. For blood thinners, patient was instructed to speak with prescribing provider about when to discontinue and was advised our office needs documentation on when to stop prior to surgery. This can be completed on the form provided for the patient. Reviewed with patient use of surgical soap prior to surgery. Patient was instructed to use the evening before and the morning of surgery. Advised to not wash hair, face, genital, or rectal area. Patient expressed full understanding of the above in preparation for surgery. Patient was advised to contact our office if any questions or concerns arise prior to surgery. MA/ATC Name: Dana documented in this encounter Plan of Treatment Upcoming Encounters Date Type Department Care Team (Latest Contact Info) Description 01/18/2025 11:30 AM CDT Hospital Encounter [facility] Operating Room [address] [place] [address] Dilshad Flores MD [address] [place] [address] DR JAQUI Denton [address] [address] 01/18/2025 11:30 AM CDT - 01/18/2025 1:40 PM CDT Surgery [facility] Operating Room [address] [place] [address] Dilshad Flores MD [address] [place] [address] DR JAQUI Denton DESI [address] [place] [id number] Left shoulder arthroscopy, distal claviculectomy including distal [...] rotator cuff, left 01/18/2025 11:30 AM CDT documented as of this encounter Visit Diagnoses Not on filedocumented in this encounter Care Teams Warehouse Team Member Relationship Specialty Start Date End Date Sandy Iglesias MD PCP - General 06/30/17 documented as of this encounter
== END 2025-01-11 08:41 | disposition home or self-care (01) ==
PROVIDERS: PCP Family Medicine; Visit Provider Family Medicine
DX: Z01.818 Encounter for other preprocedural examination (principal)
CPT/HCPCS: 93017